=== PATIENT | female | born 1945 | race Caucasian/White ===

== ENCOUNTER 2020-06-11 18:55 | Emergency (ER) | payer MEDICARE ==
[~2020-06-11] VITALS: Ht 165.1 cm; Wt 65.0 kg
[2020-06-11 20:06] LABS: HEMATOCRIT 35.7 % (37.0-47.0); HEMOGLOBIN 11.6 g/dl (12.0-16.0); IMMATURE GRANULOCYTES 0.1 % (0.0-5.0); MEAN CELL VOLUME 98.9 fL CALC (80.0-100.0); MEAN CORPUSCULAR HGB 32.1 pG CALC (26.0-32.0); MEAN CORPUSCULAR HGB CONC 32.5 g/dL CAL (32.0-36.0); NEUT# 3.84 thou/uL (2.00-7.15); RED BLOOD COUNT 3.61 mill/uL (4.20-5.60); RED CELL DISTRI WIDTH 12.3 % (11.5-15.5)
[2020-06-11 20:29] LABS: ALBUMIN 4.4 g/dL (3.2-5.0); ALKALINE PHOSPHATASE 62 u/l (38-126); ANION GAP 11 (6-22 (CALC)); BILIRUBIN, TOTAL 0.5 mg/dL (0.0-1.4); BUN 22 mg/dL (8-23); BUN/CREATININE RATIO 23 (12-20 (CALC)); CARBON DIOXIDE 26 mmol/l (22-30); CHLORIDE 104 mmol/l (95-108); CREATININE 0.9 mg/dL (0.5-1.0); GFR > 60 ML/MIN (>=60 (CALC)); GFR FOR AFR.AMER. > 60 ML/MIN (>=60 (CALC)); MAGNESIUM 2.4 mg/dL (1.6-2.3); POTASSIUM 3.9 mmol/l (3.5-5.1); SGOT/AST 32 u/l (9-36); SODIUM 137 mmol/l (137-146); TOTAL PROTEIN 7.4 g/dL (6.3-8.2)
[2020-06-11 20:40] LABS: MYOGLOBIN 105 ng/mL (0 - 62)
[2020-06-11] MEDS ORDERED: XANAX0.25 MG PO (20:42)
[2020-06-11 22:00] VITALS: BP 121/63
== END 2020-06-11 22:20 | disposition home or self-care (01) ==
LOC: ED 18:55
PROVIDERS: Family Medicine
DX: S80.11XA Contusion of right lower leg, initial encounter (principal); R55 Syncope and collapse; R00.1 Bradycardia, unspecified; I10 Essential (primary) hypertension; F41.9 Anxiety disorder, unspecified; I34.0 Nonrheumatic mitral (valve) insufficiency; V16.0XXA Pedal cycle driver injured in collision with other nonmotor vehicle in nontraffic accident, initial encounter; Y93.55 Activity, bike riding; Y92.830 Public park as the place of occurrence of the external cause